=== PATIENT | male | born 1975 | race Caucasian/White ===

== ENCOUNTER 2023-05-28 16:14 | Emergency (ER) | payer OTHER, BC, SELFPAY ==
[2023-05-28 16:20] VITALS: BP 251/138; PULSE 109; RESP 20; TEMP 37.1; O2SAT 99
--- NOTE | 2023-05-28 17:16 | PC.NURSE ---
pt leaving d/t wait time, will call provider in AM.
== END 2023-05-28 17:16 | disposition left against medical advice (07) ==
LOC: ANHED 17:19
DX: R05.9 Cough, unspecified (principal)
CPT/HCPCS: 99199

== ENCOUNTER 2023-08-28 17:34 | Emergency (ER) | payer BC, SELFPAY ==
--- NOTE | ~2023-08-28 | XR_ITS ---
EXAMINATION: XR chest 2V Exam Date/Time: 08/28/2023 18:15 CDT HISTORY: Cough Comparison: None. RESULT: Lines, tubes, and devices: None. Lungs and pleura: Mild scattered reticulonodular opacities and cuffing. Cardiomediastinal silhouette: Stable. Other: No acute osseous or upper abdominal finding. IMPRESSION: Pulmonary opacities may represent bronchiolitis, as can be seen with atypical infection, asthma, aspi ration, and small airways disease. Reviewed, dictated and finalized at location K. IMPRESSION: Pulmonary opacities may represent bronchiolitis, as can be seen with atypical i nfection, asthma, aspiration, and small airways disease.
[2023-08-28 17:52] VITALS: BP 230/139; PULSE 96; RESP 16; TEMP 37.5; O2SAT 96
--- NOTE | 2023-08-28 18:02 | ED.URI ---
HPI - URI/Sore Throat General Chief Complaint: Upper Respiratory Infection Stated Complaint: Congestion Time Seen by Provider: 08/28/23 18:06 Source: patient and RN notes reviewed Mode of arrival: ambulatory Limitations: no limitations History of Present Illness HPI Narrative: 48-year-old male presents with concern for history of 2 weeks of cough, chest congestion. Reports productive cough. Denies fever, body aches, chills, sweats. Reports his primary care provider recommended he get a chest x-ray. Reports he has been taking Mucinex and antihistamines MD elicited complaint: cough Related Data Home Medications Medication Instructions Recorded Confirmed clonidine HCl 0.1 mg tablet 0.1 mg PO BID 08/28/23 08/28/23 lisinopril 20 2 tablet PO DAILY 08/28/23 08/28/23 mg-hydrochlorothiazide 25 mg tablet Allergies Allergy/AdvReac Type Severity Reaction Status Date / Time Penicillins AdvReac Mild Hives Verified 08/28/23 18:12 Review of Systems Review of Systems: CONSTITUTIONAL: Denies malaise, chills, sweats, or fever. EYES: Denies visual changes, redness, or discharge. ENT: Reports rhinorrhea, congestion. Denies sinus pain, otalgia and sore throat. CARDIOVASCULAR: Denies chest pain, palpitations, or edema. RESPIRATORY: Reports protect cough, dyspnea. GASTROINTESTINAL: Denies abdominal pain, nausea, vomiting, diarrhea SKIN: Denies rash or itching. MUSCULOSKELETAL: Denies myalgia. NEUROLOGIC: Denies headache. All systems reviewed & are unremarkable except as noted in HPI and below PMFSH Comments At time of signature, agree with nursing past medical, surgical, social and family history. There is no relevant family history pertinent to the presenting complaint Exam Narrative: GENERAL: Well-appearing, well-nourished, and in no acute distress. HEAD: Normocephalic EYES: PERRLA, conjunctivae clear ENT: Nares clear. Mucous membranes moist. TM pearly wills with dull light reflex bilaterally; no tragal tenderness. Oropharynx not erythematous without lesions. Tonsils not enlarged and without exudate, no drooling, no hoarseness, no trismus, uvula midline. NECK: Supple. No lymphadenopathy CHEST: Clear to auscultation, breath sounds equal. No wheezing, rhonchi, rales, or stridor. No respiratory distress, speaks in full sentences. HEART: Regular rate and rhythm. No murmur heard. SKIN: Warm, dry, no rash. NEURO: Alert and oriented x3. PSYCH: Normal mood and affect Course Course Emergency Course: Patient is aware of diagnosis, understands and agrees to treatment plan. Anticipatory guidance given. Patient agrees to follow-up as directed and is aware of reasons to seek care at the emergency department. Portions of this record may have been created with voice recognition software Level of Care: Express Care Visit Vital Signs Vital signs: Vital Signs Temperature 99.5 F 08/28/23 17:52 Pulse Rate 96 08/28/23 17:52 Respiratory Rate 16 08/28/23 17:52 Blood Pressure 230/139 H 08/28/23 17:52 Pulse Oximetry 96 08/28/23 17:52 Oxygen Delivery Room Air 08/28/23 17:52 Temperature 99.5 F 08/28/23 17:52 Pulse Rate 96 08/28/23 17:52 Respiratory Rate 16 08/28/23 17:52 Blood Pressure 230/139 H 08/28/23 17:52 Pulse Oximetry 96 08/28/23 17:52 Oxygen Delivery Room Air 08/28/23 17:52 Reviewed. MDM - URI/Sore Throat MDM Narrative Medical decision making narrative: Differential diagnosis considered: Flores virus, strep pharyngitis, allergic rhinitis, upper respiratory tract infection, sinusitis, rhinosinusitis, nasopharyngitis. viral pharyngitis, otitis media, otitis externa, pneumonia, bronchitis, viral cough syndrome, viral syndrome, and influenza. Exam findings show no acute concerns or changes; patient is non-toxic appearing and is in no distress. Patient is appropriate for outpatient treatment and follow-up. Lab Data Attestation: I reviewed the patient's lab results. Imaging Data My imp
[2023-08-28 18:05] VITALS: BP 204/113
== END 2023-08-28 18:49 | disposition home or self-care (01) ==
PROVIDERS: Emergency Provider Nurse Practitioner; PCP Internal Medicine
DX: J22 Unspecified acute lower respiratory infection (principal); I10 Essential (primary) hypertension
CPT/HCPCS: 71046; 99213; G0463

== ENCOUNTER 2025-02-25 15:48 | Emergency (ER) | payer OTHER, SELFPAY ==
--- OUTSIDE RECORDS SUMMARY | 2008-04-30 04:15 | XMS_ITS | Continuity of Care Document ---
Author Organization [facility] Address [address] [place] [address] [address] [place] [address] Phone Care Team Providers Care Household Appliance Mechanic Name Role Phone Mann OD, Mart Unavailable Unavailable Procedures Procedure Date Office/outpatient Visit, Est Advance Directives Directive Yes / No Effective Date File Name No Information Encounters Encounter Description Practice Location Reason(s) For Visit Diagnoses Date Provider Providers Copied on Encounter Office/outpat ient Visit, Est [facility], [address] [place] [address] [address], [place], [place], [id number], [place] tel:[phone] [facility] [place] No Information 1-[address] Mann OD Mart. [address] , [address], [place], [address], [place]. tel:[phone] Family History Family Member Type Diagnosis Age At Onset No Information Payers Payer name Insurance type Covered constitution party ID Authoriza tion(s) No Information Social History Type Description Quantity Date Captured Comments Sex Male Smoking Status No Information Chief Complaint And Reason For Visit No Information Reason For Referral Reason For Referral No Information History Of Present Illness Encounter Date Complaint History Of Prese nt Illness No Information Functional Status Date Functional Assessmen t No Information Instructions Date Instruction Additional Infor mation No Information Assessments Type Assessment Date No Information Patient Care Teams Name Effective Dates (start - stop) Status Members No Information
--- OUTSIDE RECORDS SUMMARY | 2008-04-30 04:15 | XMS_ITS | Continuity of Care Document ---
Author Organization [facility] Address [address] [place] [address] [address] [place] [address] Phone Care Team Providers Care Business Transformation Manager Name Role Phone Mann OD, Mart Unavailable Unavailable Procedures Procedure Date Office/outpatient Visit, Est Advance Directives Directive Yes / No Effective Date File Name No Information Encounters Encounter Description Practice Location Reason(s) For Visit Diagnoses Date Provider Providers Copied on Encounter Office/outpat ient Visit, Est [facility], [address] [place] [address] [address], [place], [place], [id number], [place] tel:[phone] [facility] [place] No Information 1-[address] Mann OD Mart. [address] , [address], [place], [address], [place]. tel:[phone] Family History Family Member Type Diagnosis Age At Onset No Information Payers Payer name Insurance type Covered libertarian ID Authoriza tion(s) No Information Social History [...]
--- OUTSIDE RECORDS SUMMARY | 2021-05-26 09:24 | XMS_ITS | Continuity of Care Document ---
Author Organization [facility] Address [address] [place] [address] Phone Care Team Providers Care Section Chief Name Role Phone Candy Virgen OT Unavailable Unavailable Advance Directives Directive Yes / No Effective Date File Name No Information Encounters Encounter Description Practice Location Reason(s) For Visit Diagnoses Date Provider Providers Copied on Encounter [facility], [address], [place], [place], [id number], tel:[phone] [place] No Information 2 Promise Gupta. . Family History Family Member Type Diagnosis Age At Onset No Information Payers Payer name Insurance type Covered alliance party ID Authorjuanaa issac(s) Galindo [id number] Social History Type Description Quantity Date Captured [...]
--- OUTSIDE RECORDS SUMMARY | 2021-05-26 09:24 | XMS_ITS | Continuity of Care Document ---
Author Organization [facility] Address [address] [place] [address] Phone Care Team Providers Care Underground Distribution Engineer Name Role Phone Candy Virgen OT Unavailable Unavailable Advance Directives Directive Yes / No Effective Date File Name No Information Encounters Encounter Description Practice Location Reason(s) For Visit Diagnoses Date Provider Providers Copied on Encounter [facility], [address], [place], [place], [id number], tel:[phone] [place] No Information 2 Promise Gupta. . Family History Family Member Type Diagnosis Age At Onset No Information Payers Payer name Insurance type Covered democrat ID Authorjuanaa issac(s) Galindo [id number] Social History Type Description Quantity Date Captured [...]
--- NOTE | ~2025-02-25 | XR_ITS ---
Clinical history:Cough. Shortness of breath. EXAM:X-ray chest 2 views TECHNIQUE:Frontal and lateral images of the chest were obtained. Comparisons:08/28/2023 FINDINGS: Cardiomediastinal silhouette is enlarged, unchanged. No pneumothorax. No pleural effusion. No free air under the diaphragm. Moderate to large patchy opacities scattered throughout the both lungs, greater on the right. IMPRESSION: 1.Moderate to large patchy opacities scattered throughout the both lungs, greater on the right. Differential includes but is not limited to edema or pneumonia. Recommend follow-up to resolution is an underlying pulmonary nodule or mass. Consider a chest CT for further assessment. Reviewed, dictated and finalized at location Q. IMPRESSION: 1.Moderate to large patchy opacities scattered throughout the both lungs, great er on the right. Differential includes but is not limited to edema or pneumonia . Recommend follow-up to resolution is an underlying pulmonary nodule or mass. Consider a chest CT for further assessment.
[2025-02-25 16:00] VITALS: BP 165/118; PULSE 124; RESP 22; TEMP 37.4; O2SAT 93
--- NOTE | 2025-02-25 16:07 | ED_ITS ---
HPI - URI/Sore Throat General Chief Complaint: Upper Respiratory Infection Stated Complaint: Congestion Time Seen by Provider: 02/25/25 15:50 Source: patient Mode of arrival: ambulatory Limitations: no limitations History of Present Illness HPI Narrative: Patient is a 50-year-old male who presents with fever and chills for 3 days along with persistent, productive cough, congestion and body aches that started yesterday. Patient states he has been in bed most of the day today. Has not taken his temperature but has taken NyQuil, Zicam nasal spray and on allergy medicine. Patient has not taken any Tylenol or ibuprofen. States he has shortness of breath with exertion and even walking short distances. Patient does report he has high blood pressure and is on medication. Denies any chest pain, nausea, vomiting, diarrhea. Related Data Home Medications ?Medication ?Instructions ?Recorded ?Confirmed ?Last Taken ?Type clonidine HCl 0.1 mg tablet 0.1 mg PO BID 08/28/23 Unknown History lisinopril 20 2 tablet PO DAILY 08/28/23 1 Unknown History mg-hydrochlorothiazide 25 mg tablet Allergies Allergy/AdvReac Type Severity Reaction Status Date / Time Penicillins Allergy Mild Hives Verified 02/25/25 15:51 Review of Systems Review of Systems: All systems reviewed & are unremarkable except as noted in HPI and below Constitutional: Constitutional: Reports chills, Reports fatigue, Reports fever(s), Denies headache(s), Denies malaise and Denies weakness Eyes: Eyes: Denies blurry vision, Denies itchy eyes and Denies loss of vision ENT: Denies otalgia, Denies headache(s), Reports nasal congestion, Denies sinus pain and Denies sore throat Cardiovascular: Cardiovascular: Denies chest pain, Denies irregular heart rhythm and Denies dyspnea Respiratory: Respiratory: Reports cough and Reports dyspnea on exertion Gastrointestinal: Gastrointestinal: Denies abdominal pain, Denies diarrhea, Denies nausea and Denies vomiting Musculoskeletal: Musculoskeletal: Denies back pain, Denies myalgias and Denies arthralgias Integumentary/Breasts: Skin/Breast: Denies pruritus and Denies rash Neurologic: Denies headache(s), Denies loss of vision and Denies weakness Psychiatric: Psychiatric: Reports no additional psychiatric complaints Endocrine: Endocrine: Denies fatigue Allergic/Immunologic: Allergic/Immunologic: Denies itchy eyes PMFSH Comments At time of signature, agree with nursing past medical, surgical, social and family history. There is no relevant family history pertinent to the presenting complaint. Exam Const: General: cooperative, healthy appearing, comfortable, no acute distress and well nourished Nutritional Appearance: well nourished Orientation/consciousness: patient oriented x3 Limitations: no limitations HENMT: Head: normal to inspection, normocephalic and atraumatic Ears: hearing grossly normal bilaterally, external ears normal, TM's normal bilaterally, EAC's normal and no periauricular adenopathy Face/Nose/Sinus: Normal external nose present, Abnormal mucous membranes and turbinates present erythematous bilateral and diffuse, normal facial exam, sinuses nontender and face symmetric Face and sinus: normal facial exam, sinuses nontender and face symmetric Mouth: Yes Normal oral and palatal mucosa present, Yes lip normal, Yes tongue normal, Yes Normal salivary glands and ducts present, Yes oropharynx normal and Yes moist mucous membranes Teeth and gingiva: dentition normal Throat: posterior oropharynx normal, tonsils normal and uvula midline Eyes: General: appearance normal, both eyes and all related structures Alignment and Position: alignment normal and position normal Periorbital: periorbital findings normal Eyelids: eyelids normal Pupils: Equal, round and reactive pupils present Neck: Neck: normal visual inspection, full ROM, no lymphadenopathy and supple Chest: Chest palpation & inspection: normal inspection of the chest and normal palpation of entire chest wall Resp: Effort & Inspection: normal respiratory effort and able to speak in complete sentences Auscultation: clear to auscultation bilaterally, no crackles, no rales, no rhonchi and no wheezes Cardio: Rate: regular rate Rhythm: regular rhythm Heart sounds: S1 normal heart sound present and S2 normal heart sound present GI: Inspection: normal to inspection Skin: General skin exam: normal color and no rashes or lesions noted Neuro: General: patient oriented x3 and moves all extremities Cranial nerves: Yes Equal, round and reactive pupils present Speech: normal speech Gait exam (Neuro): Normal gait present Extrem: General: normal to inspection, full ROM and no edema Psych: Appearance: grossly normal and well kempt Mental Status: mental status grossly normal Speech and movement: Normal speech and movement present Affect: normal affect Attitude: cooperative Thought process: Normal t hought process present Course Course Emergency Course: Discharge instructions reviewed with patient, as well as provided in writing per nursing staff. The instructions also include specific and strict return/GO TO THE ER as well as f/u information. All questions have been answered, and the patient deny any further questions with discharge and discharge plan. Portions of this record may have been created with voice recognition software Level of Care: Express Care Visit Vital Signs Vital signs: Vital Signs Temperature 37.4 C 02/25/25 16:00 Pulse Rate 124 H 02/25/25 16:00 Respiratory Rate 22 H 02/25/25 16:00 Blood Pressure 165/118 H 02/25/25 16:00 Pulse Oximetry 93 02/25/25 16:00 Oxygen Delivery Room Air 02/25/25 16:00 Temperature 37.4 C 02/25/25 16:00 Pulse Rate 122 H 02/25/25 16:34 Respiratory Rate 22 H 02/25/25 16:34 Blood Pressure 165/118 H 02/25/25 16:00 Pulse Oximetry 94 02/25/25 16:34 Oxygen Delivery Room Air 02/25/25 16:00 Reviewed MDM - URI/Sore Throat MDM Narrative Medical decision making narrative: Patient reports being seen for this last year and was told to go to the ER. Patient went to the ER but did not want to wait so he was home and followed up with his PCP. Patient again declines transfer to ED for CT scan and will contact his PCP for outpatient imaging. Will start patient on steroids, antibiotics, Tessalon Perles to use sparingly at night and albuterol inhaler. Patient received breathing treatment does report significant relief of symptoms. Scattered coarse crackles still present and lower lobes primarily in right. Pt well hydrated appearing, in no respiratory distress, hemodynamically stable. Recommend supportive care. The patient is stable at time of discharge the clinical impression was discussed and the patient was given the opportunity to ask questions, which were addressed as completely as possible given the information available at present. Anticipatory guidance and return to care precautions were discussed and the importance of primary care follow-up was stressed and encouraged. The patient voiced understanding of the plan, indications to return, and the need for follow-up. Exam findings show no acute concerns or changes Patient is appropriate for outpatient treatment and follow-up. Differential diagnosis considered: Pneumonia, Flores virus, strep pharyngitis, allergic rhinitis, upper respiratory tract infection, sinusitis, rhinosinusitis, nasopharyngitis. viral pharyngitis, otitis media, otitis externa, otitis effusion, foreign body, cerumen impaction, viral syndrome, and influenza.? Medical Records Attestation: I reviewed the patient's medical records. Lab Data Attestation: I reviewed the patient's lab results. Labs: Lab Results 02/25/25 02/25/25 Range/Units 16:15 16:16 POC Influenza A Ag Negative (Negative) POC Influenza B Ag Negative (Negative) POC SARS CoV-2 Ag Negative (Negative) Imaging Data Radiologist's impression: Clinical history:Cough. Shortness of breath. EXAM:X-ray chest 2 views TECHNIQUE:Frontal and lateral images of the chest were obtained. Comparisons:08/28/2023 FINDINGS: Cardiomediastinal silhouette is enlarged, unchanged. No pneumothorax. No pleural effusion. No free air under the diaphragm. Moderate to large patchy opacities scattered throughout the both lungs, greater on the right. IMPRESSION: 1.Moderate to large patchy opacities scattered throughout the both lungs, greater on the right. Differential includes but is not limited to edema or pneumonia. Recommend follow-up to resolution is an underlying pulmonary nodule or mass. Consider a chest CT for further assessment. Reviewed, dictated and finalized at location Q. Discharge Plan Discharge Clinical Impression: Pneumonia Patient Disposition: Home Condition: Stable Instructions: Pneumonia (ED) Additional Instructions: Pneumonia is a lung infection that can cause a fever, cough, and trouble b reathing. Please continue all antibiotics as directed until complete. Nutrition is important - eat small frequent meals. Get lots of rest and drink fluids. Take antibiotic as prescribed. Take steroids in the morning with food. Use Tessalon Perles as needed for cough. Use inhaler with spacer as needed. Other symptomatic treatments include: -Alternate Tylenol and Motrin per package directions for fever or pain: Tylenol 650-1000mg by mouth every 4-6 hours. Do not exceed 4000mg in 24 hours. Advil (Ibuprofen) 600 mg by mouth every 6 hours. Do not exceed 2400mg in 24 hours. 8 AM: Tylenol 11 AM: Ibuprofen 2 PM: Tylenol 5 PM: Ibuprofen 8 PM: Tylenol 11 PM: Ibuprofen 2 AM: Tylenol 5 AM: Ibuprofen -Antihistamine medication such as Benadryl at night and Zyrtec/Claritin/Nidhi during the day can help improve symptoms. -Use Flonase twice a day for 5 days then daily to help reduce the inflammation and dry up your sinuses. -Eat and drink things that are easy to swallow, like tea or soup, or popsicles. -Oral rinses such as: Salt water gargles and/or may use topical anesthetic (eg. Chloraseptic spray) or lozenges to relieve dryness or throat pain). -Frequent hand washing or hand fishing line winding machine operator is one of the best ways to prevent spread of infection. -Using a vaporizer or humidifier at night will also help thin secretions and help with coughing up phlegm. Call your Primary Care Doctor and make a follow-up appointment in 3 days. If your cough worsens, you develop a fever greater than 103, you develop shaking chills, a fast heartbeat, trouble breathing and/or feel you are are breathing much faster than usual, call your Primary Care Doctor or go to the ER. Make sure you wash your hands frequently. Patient Language: Greenlandic Prescriptions: New prednisone 20 mg tablet 40 mg PO DAILY 5 Days Qty: 10 0RF doxycycline monohydrate 100 mg tablet 100 mg PO BID 7 Days Qty: 14 0RF benzonatate 100 mg capsule 100 mg PO BID PRN (Reason: cough) Qty: 14 0RF albuterol sulfate 90 mcg/actuation HFA aerosol inhaler 2 puff inhalation QID PRN (Reason: shortness of breath or wheezing) Qty: 6.7 0RF (DME) Aerochamber MV Spacer See Rx Instructions .Route Qty: 1 0RF Rx Instructions: As directed No Action clonidine HCl 0.1 mg tablet 0.1 mg PO BID lisinopril-hydrochlorothiazide 20-25 mg tablet 2 tablet PO DAILY Follow-up/Referrals: Neto,MD Devyn [Primary Care Provider] - 3 Days Stand Alone Forms: Work/School Release IP Time of Disposition: 16:40
[2025-02-25] MEDS: IPRATROPIUM 0.5 MG/ALBUTEROL SULFATE 2.5 MG (BASE) AMPUL.NEB 3 ML INHALATION (16:16)
[2025-02-25 16:17] LABS: EDINFLUASCREEN Negative (Negative); EDINFLUBSCREEN Negative (Negative)
[2025-02-25 16:17] LABS: EDCOVIDSCREEN Negative (Negative)
[2025-02-25 16:19] VITALS: PULSE 124; RESP 24; O2SAT 93
[2025-02-25 16:34] VITALS: PULSE 122; RESP 22; O2SAT 94
--- OUTSIDE RECORDS SUMMARY | 2025-02-25 17:45 | XMS_ITS | Data Portability ---
Author Organization [place] - [facility], Main Office Address [address] [place] [address] Assessment Encounter Date Assessment Date Assessment LastModified by Organization Details LastModified Time 12/16/2022 12/16/2022 Refill medications advised ER refused see me back when he gets back in town I have recommended he see a supplier engineer in [place] and he says he will find 1 [email or web address] Not available 12/16/2022 14:59:31 05/09/2023 05/09/2023 Blood pressure check 2 weeks Needs a sleep study Blood work With see if we can get AG LP 1 agent to help with weight [email or web address] Not available 05/09/2023 22:02:24 Plan of Treatment Reminders Order Date Submit Date Provider Last Modified By Organization Details Last Modified Time Details Appointments None recorded. Lab PSA, serum or plasma 2023 024 [email or web address] Not available 4 09:02:38 CMP, serum or plasma 2023 024 [email or web address] Not available 4 11:16:55 CBC w/ auto diff 2023 024 [email or web address] Not available 4 11:16:55 lipid panel, serum 2023 024 [email or web address] Not available 4 11:16:56 T3, free, serum or plasma 2023 024 [email or web address] Not available 4 09:02:37 T4, free, serum 2023 024 [email or web address] Not available 4 09:02:37 TSH, serum or plasma 2023 024 [email or web address] Not available 4 09:02:37 Referral None recorded. Procedures None recorded. Surgeries None recorded. Imaging home sleep study 2023 024 [facility], [address] [place], [address], 4 09:02:43 Medication Orders tirzepatide 2.5 mg/0.5 mL subcutaneou s pen injector 2023 024 [id number], [address] [place], [place], [id number], 4 16:58:17 tirzepatide 5 mg/0.5 mL subcutaneou s pen injector 2023 024 [email or web address] [id number], [address] [place], [place], [id number], 4 16:58:17 Patient TargetsNo targets recorded. Patient InstructionsNo instructions recorded. Reason for Referral None Reported. Problems Name Problem SNOMED Code Status Onset Date Resolution Date Notes Provider Name and Address Organization Details Recorded Time Hyperchole sterolemia 70108526 Active 2019 Not Available [facility] 3 04:50:09 Hypertensi ve disorder 89417965 Active 2019 Not Available [facility] 3 04:50:10 Anxiety 77323585 Active 2019 Not Available [facility] 3 04:50:10 Kidney lesion 1091702855607 0 Active 2020 Not Available [facility] 3 04:50:10 Right lateral elbow tendinopat hy 2093272289184 07 Active 2020 Not Available [facility] 3 04:50:10 Renewal of prescripti on Active 2021 Not Available [facility] 3 04:50:09 Renal mass 699460941 Active 2021 Not Available [facility] 3 04:50:09 Essential hypertensi on 12080293 Active 2021 Not Available [facility] 3 04:50:10 Cough 14798183 Active 2022 Valerie Maria RN null, [facility] 3 12:05:44 Overweight 898798967 Active 2023 RENATO Kamara null, [facility] 4 15:46:29 Sleep disorder 33314146 Active 2023 RENATO Kamara null, [facility] 4 15:51:31 Wheezing 65472856 Active 2023 RENATO Zepeda null, [facility] 4 13:36:28 Problem Notes None recorded. Procedures Surgical History Date Name Laterality Status Provider Name and Address Organization Details Recorded Time Knee completed Not Available [facility] 05/2022 04:41:40 procedure on elbow completed Not Available [facility] 06/29/2022 04:41:40 Knee completed Not Available [facility] 05/2022 04:41:40 Imaging Results None recorded. Procedure Notes None recorded. Medical Equipment None Reported. Allergies Allergen ID Allergen Name Allergen Category Reaction Reaction Severity Criticality Documentation Date Start Date Code Code System Note Provider Name and Address Organization Details Recorded Time 8654 Product containin g penicilli n (product) medicatio n Not available Not available Not available 06/29/2022 21461 8001 SNOMED child denis aller gy Not Available [facility] 3 05:06:03 Medications Name Sig Start Date Stop Date Status Note LastModified by Organization Details LastModified Time clonidine HCl 0.1 mg tablet TAKE 1 TABLET BY MOUTH TWICE DAILY active Not Available Not Available No t Available carvedilol 6.25 mg tablet TAKE 1 TABLET BY MOUTH TWICE DAILY active Not Available Not Available No t Available prednisone 10 mg tablet TAKE 1 TAB BY MOUTH 3 TIMES A DAY X3 DAYS, 1 TAB 2 TIMES A DAY X2 DAYS, 1 TAB ONCE A DAY X1 DAY 06/14 completed Not Available Not Available Not Available doxycycline hyclate 100 mg capsule TAKE 1 CAPSULE BY MOUTH TWICE DAILY FOR 7 DAYS 11/23 completed Not Available Not Available Not Available carvedilol 12.5 mg tablet TAKE 1 TABLET BY MOUTH TWICE DAILY active Not Available Not Available No t Available azithromyci n 250 mg tablet TAKE 2 TABLETS BY MOUTH FOR 1 DAY THEN TAKE 1 TABLET BY MOUTH DAILY FOR 4 DAYS active Not Available Not Available No t Available ibuprofen 800 mg tablet TAKE 1 TABLET BY MOUTH THREE TIMES A DAY FOR 10 DAYS NEEDED FOR PAIN. TAKE WITH FOOD 05/09 completed Not Available Not Available Not Available nifedipine ER 90 mg tablet,exte nded release TAKE 1 TABLET BY MOUTH EVERY DAY active Not Available Not Available No t Available hydrocodone 5 mg-acetamin ophen 325 mg tablet TAKE 1 TABLET BY MOUTH EVERY 6 HOURS NEEDED 06/14 completed Not Available Not Available Not Available prednisone 20 mg tablet TAKE 2 TABLETS BY MOUTH EVERY DAY FOR 5 DAYS active Not Available Not Available No t Available sertraline 100 mg tablet TAKE 1 TABLET BY MOUTH EVERY DAY 05/09 completed Not Available Not Available Not Available permethrin 5 % topical cream APPLY (THOROUGH LY MASSAGE INTO SKIN FROM HEAD TO SOLES OF FEET) BY TOPICAL ROUTE ONCE LEAVE ON FOR 8-14 HR, THEN REMOVE BY THOROUGH WASHING 06/14 completed Not Available Not Available Not Available nifedipine ER 30 mg tablet,exte nded release Take 1 tablet by mouth once daily pt needs appt active Not Available Not Available No t Available prednisone 10 mg tablets in a dose pack Take 1 tab by mouth, 3 times a day for 3 daysTake 1 tab by mouth 2 times a day for 2 daysTake 1 tab by mouth once a day for 1 day 06/14 completed Not Available Not Available Not Available meloxicam 7.5 mg tablet 12/15 completed Not Available Not Available Not Available oxycodone-a cetaminophe n 5 mg-325 mg tablet PLEASE SEE ATTACHED FOR DETAILED DIRECTION S 05/09 completed Not Available Not Available Not Available nifedipine ER 60 mg tablet,exte nded release 24 hr TAKE 1 TABLET BY MOUTH EVERY DAY active Not Available Not Available No t Available pantoprazol e 40 mg tablet,sidra yed release Take 1 tablet every day by oral route. 12/16 completed Not Available Not Available Not Available erythromyci n 5 mg/gram (0.5 %) eye ointment PLEASE SEE ATTACHED FOR DETAILED DIRECTION S 06/14 completed Not Available Not Available Not Available lisinopril 20 mg-hydrochl orothiazide 25 mg tablet TAKE 1 TABLET BY MOUTH EVERY DAY active Not Available Not Available No t Available methylpredn isolone 4 mg tablets in a dose pack 05/09 completed Not Available Not Available Not Available albuterol sulfate HFA 90 mcg/actuati on aerosol inhaler INHALE 2 PUFFS BY MOUTH EVERY 4 HOURS active Not Available Not Available No t Available nifedipine ER 60 mg tablet,exte nded release TAKE 1 TABLET BY MOUTH EVERY DAY active Not Available Not Available No t Available cefdinir 300 mg capsule Take 1 capsule twice a day by oral route for 7 days. active Not Available Not Available No t Available sertraline 50 mg tablet TAKE 1 TABLET BY MOUTH ONCE DAILY FOR TWO WEEKS THEN INCREASE TO 2 TABLETS DAILY active Not Available Not Available No t Available escitalopra m 10 mg tablet TAKE 1 TABLET BY MOUTH EVERY DAY active Not Available Not Available No t Available omeprazole OTC qd 03/20 completed Not Available Not Available Not Available Sinus and Allergy PE 2019 active Not Available Not Available Not Avai lable Mounjaro 5 mg/0.5 mL subcutaneou s pen injector Inject by subcutane ous route for 28 days. active Not Available Not Available No t Available Mounjaro 2.5 mg/0.5 mL subcutaneou s pen injector Inject by subcutane ous route for 28 days. active Not Available Not Available No t Available Vitals Date Recorded Body height Body mass index (BMI) Body weight Body temperature Heart rate Systolic And Diastolic Provider Name and Address Organization Details Last Updated DateTime 4 180.34 cm 48.8 kg/m2 983318. 33 g 97.9 [degF] 92 /min 152/104 mm[Hg] RENATO Zepeda [place] [facility] 4 15:11:51 Date Recorded Body height Provider Name an d Address Organization Details Last Updated DateTime 06/14/2021 180.34 cm Not Available [facility] 3 04:42:06 Date Recorded Body mass index (BMI) Body height Heart rate Body temperature Body weight Systolic And Diastolic Provider Name and Address Organization Details Last Updated DateTime 2 45.9 kg/m2 180.34 cm 87 /min 97.8 [degF] 967889. 89 g 160/100 mm[Hg] Not Available [facility] 3 04:42:06 Date Recorded Body height Body mass index (BMI) Body weight Body temperature Heart rate Systolic And Diastolic Provider Name and Address Organization Details Last Updated DateTime 3 180.34 cm 47 kg/m2 191267. 63 g 97.8 [degF] 99 /min 200/142 mm[Hg] RENATO Zepeda [place] [facility] 3 13:14:46 Date Recorded Body mass index (BMI) Body height Heart rate Body temperature Body weight Systolic And Diastolic Provider Name and Address Organization Details Last Updated DateTime 2 45.3 kg/m2 180.34 cm 85 /min 97.7 [degF] 672383. 52 g 140/90 mm[Hg] Not Available [facility] 3 04:42:06 Social History Question Answer Notes LastModified by Organization Details LastModified Time Tobacco Smoking Status Current Some Day Smoker not every day and one or two at most Not Available [facility] 06/29/2022 04:05:53 Do You Have An Advance Directive? No MIGRATION.030 [id number] Information not available 06/29/2022 Do You Wear A Helmet When Biking? No Does Not Bike MIGRATION.030 [id number] Information not available 06/29/2022 What Is Your Level Of Caffeine Consumption? Occasional MIGRATION.030 [id number] Information not available 06/29/2022 How Much Tobacco Do You Chew? None MIGRATION.030 [id number] Information not available 06/29/2022 In The 14 Days Before Symptom Onset, Have You Had Close Contact With A Laboratory-confi rmed COVID-19 While That Case Was Ill? No MIGRATION.030 [id number] Information not available 06/29/2022 In The 14 Days Before Symptom Onset, Have You Had Close Contact With A Person Who Is Under Investigation For COVID-19 While That Person Was Ill? No MIGRATION.0301 [id number] Information not available 06/29/2022 What Type Of Diet Are You Following? REGULAR MIGRATION.0301 [id number] Information not available 06/29/2022 Which Illicit Or Recreational Drugs Have You Used? None MIGRATION.0301 837083 Information not available 06/29/2022 What Is The Highest Grade Or Level Of School You Have Completed Or The Highest Degree You Have Received? [id number] MIGRATION.0301 [id number] Information not available 06/29/2022 Have There Been Any Changes To Your Family Or Social Situation? No MIGRATION.0301 [id number] Information not available 06/29/2022 What Is The Fluoride Status Of Your Home? Unknown MIGRATION.0301 557385 Information not available 06/29/2022 Are There Any Guns Present In Your Home? Yes MIGRATION.0301 488720 Information not available 06/29/2022 Do You Use Insect Repellent Routinely? No MIGRATION.0301 [id number] Information not available 06/29/2022 Where Do You Live? [place]LevelHouse MIGRATION.0301 255525 Information not available 06/29/2022 Do You Have A Medical Power Of Agricultural Produce Packer? No MIGRATION.0301 468237 Information not available 06/29/2022 What Was The Date Of Your Most Recent Tobacco Screening? 05/09/2023 [email or web address] Information not available 05/09/2023 Do You Have Any Pets? Yes MIGRATION.0301 [id number] Information not available 06/29/2022 What Is Your Relationship Status? MIGRATION.0301 [id number] Information not available 06/29/2022 Do You Use Your Seat Belt Or Car Seat Routinely? Yes MIGRATION.0301 638700 Information not available 06/29/2022 Do You Have Smoke And Carbon Monoxide Detectors In Your Home? Yes MIGRATION.0301 [id number] Information not available 06/29/2022 At What Age Did You Start Smoking Tobacco? 20 MIGRATION.0301 [id number] Information not available 06/29/2022 Are You Passively Exposed To Smoke? Yes MIGRATION.0301 365022 Information not available 06/29/2022 Are There Any Smokers In Your House? Yes MIGRATION.0301 155368 Information not available 06/29/2022 What Types Of Sporting Activities Do You Participate In? None MIGRATION.0301 265620 Information not available 06/29/2022 Do You Use Sunscreen Routinely? Yes MIGRATION.0301 423931 Information not available 06/29/2022 Has Tobacco Cessation Counseling Been Provided? No MIGRATION.0301 386096 Information not available 06/29/2022 Have You Recently Traveled Abroad? No MIGRATION.0301 359244 Information not available 06/29/2022 Do You Have Any Dietary Restrictions? No MIGRATION.0301 874666 Information not available 06/29/2022 Sex: Male Functional Status Question Answer Note LastModified by Organizat ReplySend Details LastModified Time Do you use any illicit or recreational drugs? No MIGRATION.149899 2953 Information not available 06/29/2022 Do you or have you ever used any other forms of tobacco or nicotine? No MIGRATION.716527 8900 Information not available 06/29/2022 What is your level of alcohol consumption? None quit MIGRATION.099630 9452 Information not available 06/29/2022 Do you or have you ever used smokeless tobacco? 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 Never used electronic cigarettes MIGRATION.483563 8144 Information not available 06/29/2022 What is your exercise level? None MIGRATION.092474 2971 Information not available 06/29/2022 Mental Status Question Answer Note LastModified by Organizat ion Details LastModified Time Do you feel stressed (tense, restless, nervous, or anxious, or unable to sleep at night)? [id number] MIGRATION.[id number] Information not available 06/29/2022 Family History Relationship Description Onset Age of this Age Resolved Age Notes LastModified by Organization Details LastModified Time Mother Parkinson's disease MIGRATION.092 [id number] Not available 06/29/2022 04:41:42 Mother Mixed anxiety and depressive disorder MIGRATION.055 [id number] Not available 06/29/2022 04:41:42 Father Hypertensive disorder MIGRATION.839 [id number] Not available 06/29/2022 04:41:43 Father Atrial fibrillation MIGRATION.598 [id number] Not available 06/29/2022 04:41:43 Medical History Condition Response NERVE DISEASE N BLINDNESS N RHEUMATIC FEVER N KIDNEY STONES N BLADDER PROBLEMS N MRSA N OTHER # 1 N POLIO N LUNG DISEASE/DISORDER N RADIATION / CHEMOTHERAPY N COPD N Other # 2 N BLOOD DISEASES N EAR OR HEARING PROBLEMS N MUMPS N DEPRESSION (INCLUDING POST ) N BOWEL PROBLEMS N STROKE/TIA N ULCERS N BENIGN PROSTATIC HYPERPLASIA N MEASLES N MYOCARDIAL INFARCTION N OBESITY N GERD/NAUSEA Y ANEURYSM N URINARY/BLADDER/KIDNEY PROBLEMS Y CORONARY ARTERY DISEASE (CAD) N ADDICTION CONCERNS N Impotence N ENDOMETRIOSIS N USE OF BLOOD THINNERS N SKIN PROBLEMS N GASTROINTESTINAL DISORDER N PERIPHERAL VASCULAR DISEASE N MUSCLE,JOINT OR BONE PROBLEMS N GASTROINTESTINAL BLEEDING N BLOOD CLOTS N ASTHMA N CATARACTS N ERECTILE DYSFUNCTION N VARICOSITIES N GI PROBLEMS N Low Testosterone N INFERTILITY N AIDS/HIV N CHEMOTHERAPY / RADIATION N LIVER DISEASE N MALE HYPOGONADISM N HYPERTENSION Y Deficiency N TOURETTE'S N ANXIETY DISORDER Y BLOOD TRANSFUSION N ANEMIA/BLOOD DISORDER N CHRONIC EAR INFECTIONS N BRONCHITIS N TUBERCULOSIS N GLAUCOMA N FOOT PROBLEM N DIVERTICULITIS N SLEEP APNEA N CHICKENPOX N INFECTIOUS DISEASE N PROSTATE N HEART ARRHYTHMIA N INSOMNIA N HIGH CHOLESTEROL / HYPERLIPIDEMIA Y EYE PROBLEMS N HYPERTHYROIDISM N EDEMA N CHRONIC PAIN SYNDROME N HYPOTHYROIDISM N CAROTID BLOCKAGE N CONSTIPATION N BACK / NECK PROBLEMS N ATHEROSCLEROSIS N BREAST PROBLEMS N DIALYSIS N ECZEMA N OSTEOPOROSIS N ARTHRITIS N APPENDICITIS N DIABETES, TYPE N BAD TEETH N ENT N HEARTBURN / REFLUX N AUTISM SPECTRUM DISORDER (ASD) N HEPATITIS / LIVER DISEASE N GOUT N SLEEP DISORDER N ALZHEIMER'S DISEASE N Brain Problems N DEMENTIA N HERPES N SEIZURES/EPILEPSY N HEADACHES/MIGRAINES N VASCULAR DISEASE N PACEMAKER N Blood Disorder N DIZZINESS N HEART DISEASE/HEART PROBLEMS N KIDNEY DISEASE N MULTIPLE SCLEROSIS N CANCER: SPECIFY N CARDIAC ARRHYTHMIA N ATRIAL FIBRILLATION N Gall Stones N PULMONARY EMBOLISM N AUTOIMMUNE DISEASE N Past Encounters Encounter ID Performer Location Encounter Start Date Encounter Closed Date Diagnosis/Indication Diagnosis SNOMED-CT Code Diagnosis ICD10 Code Diagnosis IMO Codes Diagnosis Note [id number] Misbah Galarza MD S_[address] [place] [address] 07/09/2020 00:00:00 07/09/2020 11:36:08 [id number] Devyn uDque MD S[facility] Internal Med [facility] [address] [facility] [address] [place] [address] 09/02/2020 00:00:00 09/02/2020 22:38:13 [id number] Devyn Duque MD [facility] Internal Med [address] , [place] [address] 10/20/2020 00:00:00 10/27/2020 22:42:25 [id number] [facility] [place] [address] [place] [address] 10/21/2020 00:00:00 10/21/2020 10:51:23 [id number] Misbah Galarza MD [facility] [place] [address] [place] [address] 04/29/2021 00:00:00 04/29/2021 10:14:34 [id number] Devyn Duque MD [facility] [address] [address] 06/14/2021 00:00:00 06/27/2021 11:30:37 [id number] Devyn Duque MD [facility] [address] [address] 12/15/2021 00:00:00 12/18/2021 22:45:09 [id number] Devyn Duque MD [facility] Internal Med [facility] [address] [address] 02/11/2022 00:00:00 02/11/2022 23:45:17 [id number] Devyn Duque MD [facility] [address] [address] 12/16/2022 12:51:11 12/16/2022 14:07:15 Hypertensive disorder 35035133 I10 Hypercholesterolemia 136 47424 E78.00 Anxiety 66287945 F41.9 [id number] Devyn Duque MD [facility] [address] [facility] , [place] [address] 05/09/2023 14:54:40 05/09/2023 15:40:26 Essential hypertension 18941800 I10 Screening for malignant neoplasm of prostate 252445748 Z12.5 Overweight 467232180 E66 .3 Sleep disorder 26251792 G47.9 Health Concerns Section Related Observation LastModified by Organization Detai ls LastModified Time None Recorded Concern Status LastModified by Organization Details LastModified Time None Recorded Advance Directives Directive N: Payers Insurance Date Sequence Insurance Name Policy Number Policy Pleitez Covered Member ID Pleitez Member ID Guarantor Name 11/21/2024 [facility] Luis Alfredo R Amanda SELF SELF Luis Alfredo Beckwith Amanda 11/21/2024 1 [place] [id number] Luis Alfredo Beckwith Amanda [id number] Luis Alfredo Patel 11/21/2024 1 [place] [facility] Luis Alfredo Beckwith Amanda [id number] Luis Alfredo Beckwith Amanda 11/21/2024 1 [place] [id number] Luis Alfredo Beckwith Amanda [id number] Luis Alfredo R Amanda Notes Date Note Type Note Provider Name and Address Organization Details Recorded Time 12/16/2022 text/html Hypertension blood pressures eyes been out of meds but he has had no stroke or cardiac some Devyn Duque MD [address], [place], [address], [facility] 12/16/2022 15:00:03 05/09/2023 text/html This job is brought in back to this area he has been out of his blood pressure medicine for about 2 or 3 months. That all because a game some erectile dysfunction. Sleeping snoring worse with drinking dyslipidemia needs blood work obesity needs help Devyn Duque MD [address], [place], [address], [facility] 05/09/2023 22:02:57
--- OUTSIDE RECORDS SUMMARY | 2025-02-25 17:45 | XMS_ITS | Data Portability ---
Author Organization [facility] Aman Quintanilla Address [address] [place] [address] Care Team Providers Care Physician Assistant Name Role Phone DEANDRA DUQUE Primary Care Provider Assessment Encounter Date Assessment Date Assessment LastModified by Organization Details LastModified Time 02/01/2024 02/01/2024 EKG shows a norm al sinus rhythm with no acute changesc. We will add Coreg 12.5 b.i.d.. Blood pressure check in 48-72 hours. Any chest pain shortness of breath headache dizziness chest pain go to ER. He refuses to go to ER today. Blood work will be ascertained as well as urinalysis old records. He will need a sleep study. He needs colon cancer screening. We need old records. Healthy life style care instructions discussed. [email or web address] Not available 02/01/2024 22:25:02 03/11/2024 03/11/2024 caloric restriction. Sleep study. Colonoscopy. Surgical referral for his right inguinal hernia. follow up in 3 months [email or web address] Not available 03/16/2024 14:30:14 07/25/2024 07/25/2024 generic Lexapro 10 mg daily increase Coreg to 12.5 b.i.d. follow up in 1 month no contraindications to GLP 1 but his insurance company will not pay for it he thinks he is going to go and possibly do it through private clinic. He needs to go get his blood work done as well [email or web address] Not available 07/27/2024 21:08:21 08/22/2024 08/22/2024 His blood pressu re is not controlled add clonidine 0.2 mg p.o. b.i.d. increase Coreg to 25 b.i.d. get a sleep study blood pressure check in 1 week start semaglutide from clinic if he can afford it regular visit 1 month [email or web address] Not available 09/01/2024 23:29:52 Plan of Treatment Reminders Order Date Submit Date Provider Last Modified By Organization Details Last Modified Time Details Appointments None recorded. Lab HbA1c (hemoglobi n A1c), blood 2024 025 [email or web address] In-Office Order, Internal Use Only DO Not Attach Compendium DO Not Attach Compendium, Do Not Delete/merge, [id number] 21:34:17 T3, free, serum or plasma 2023 024 [email or web address] [facility], [address], [address], [place], [address], 11:34:45 TSH, ultra-sens itive, serum 2023 024 [email or web address] [facility], [address], [address], [place], [address], 11:34:45 unlisted lab - T4, free 2023 024 cyahlma [facility], [address], [address], [place], [address], 11:34:33 lipid panel, serum 2023 024 [email or web address] [facility], [address], [address], [place], [address], 11:34:45 CMP, serum or plasma 2023 024 cyahlma [facility], [address], [address], [place], [address], 4 11:34:25 CBC w/ auto diff 2023 024 [email or web address], [address], [address], [place], [address], 4 11:34:16 urinalysis , complete 2023 024 [email or web address] [facility], [address], [address], [place], [address], 4 11:34:03 Referral general surgeon referral 2023 024 [email or web address] Tenorio MD, [address], [address], [place], [address], 5 09:43:46 Procedures colonoscop y screening (PROC) 2023 024 [facility], [address], [address], [place], [address], 5 10:50:00 Surgeries None recorded. Imaging home sleep study 2023 024 [facility]), [address], [place], [address], 5 09:17:22 electrocar diogram 2023 024 [email or web address] In-Office Order, Internal Use Only DO Not Attach Compendium DO Not Attach Compendium, Do Not Delete/merge, [id number] 4 17:37:28 Medication Orders clonidine HCl 0.2 mg tablet 2024 025 [email or web address] [facility], [address], [place], [id number], 5 21:34:17 Coreg 25 mg tablet 2024 025 [email or web address] [facility]25, [address], [place], [id number], 21:34:17 semaglutid e (weight loss) 0.25 mg/0.5 mL subcutaneo us pen injector 2024 [facility]74078, [address], [place], [place], [id number], 15:07:38 escitalopr am 10 mg tablet 2024 025 [facility] #43875, [address], [place], [place], [id number], 15:07:39 Coreg 12.5 mg tablet 2024 025 [email or web address], [address] [facility], [place], [place], [phone], 12:10:27 Patient TargetsNo targets recorded. Patient Instructions Encounter Date Encounter Id Patient Instructions Last Modified By Organization Details Last Modified Time 02/01/2024 [id number] A healthy lifestyle: care instructions [email or web address] Not available 02/01/2024 17:37:28 08/22/2024 [id number] A healthy lifestyle: care instructions [email or web address] Not available 08/22/2024 21:34:17 Reason for Referral General Surgeon Referral for Right inguinal hernia Referring Physician: Deandra Duque, Internal Medicine, Encounter Date: 03/11/2024 Results Created Date Observation Date Name Description Value Unit Range Abnormal Flag Note LastModifiedBy Organization Detail LastModifiedTime 08/23/1908/22/2024 HbA1c (hemo globi n A1c), blood HbA1c 5.7 Not Available In-Office Order Internal Use Only DO Not Attach Compendium DO Not Attach Compendium, Do Not Delete/merge, [id number] 08/22/2024 14:39:34 02/01/20 raquel whelan am No observ ation record ed. SHAKA In-Office Order Internal Use Only DO Not Attach Compendium DO Not Attach Compendium, Do Not Delete/merge, [id number] 02/01/2024 15:58:34 02/26/20 25 02/25/2025 imagi ng/di agnos tic resul t No observ ation record ed. SHAKA [facility] [address], [place], [address], 02/25/2025 17:20:35 Result Notes None recorded. Problems Name Problem SNOMED Code Status Onset Date Resolution Date Notes Provider Name and Address Organization Details Recorded Time Essential hypertension 44412856 Active 2023 Titus Almaguer MA null, [place] - [facility] 4 16:00:09 Morbid obesity 386006336 Active 2023 Titus Almaguer [place] null, [place] [facility] 4 16:00:10 Anxiety 26233231 Active 2024 Deandra Duque MD Attn: Accountj[employer]iel g,[address] [facility], [place], [address], [place] - [facility] 5 23:30:07 Problem Notes None recorded. Medical Equipment None Reported. Allergies Allergen ID Allergen Name Allergen Category Reaction Reaction Severity Criticality Documentation Date Start Date Code Code System Note Provider Name and Address Organization Details Recorded Time 377504 Product containin g penicilli n (product) medicatio n Not available Not available Not available 02/01/2024 42933 8001 SNOMED Rica Fernandez MA null, [place] - [facility] 4 15:08:39 Medications Name Sig Start Date Stop Date Status Note LastModified by Organization Details LastModified Time clonidine HCl 0.1 mg tablet TAKE 1 TABLET BY MOUTH TWICE DAILY 08/28 completed Not Available Not Available Not Available carvedilo l 6.25 mg tablet TAKE 1 TABLET BY MOUTH TWICE DAILY 08/28 completed Not Available Not Available Not Available doxycycli ne hyclate 100 mg capsule Take 1 capsule twice a day by oral route for 7 days. 07/12 completed Not Available Not Available Not Available carvedilo l 12.5 mg tablet TAKE 1 TABLET BY MOUTH TWICE DAILY 08/28 completed Not Available Not Available Not Available azithromy hollis 250 mg tablet TAKE 2 TABLETS BY MOUTH FOR 1 DAY THEN TAKE 1 TABLET BY MOUTH DAILY FOR 4 DAYS 01/31 completed Not Available Not Available Not Available ibuprofen 800 mg tablet TAKE 1 TABLET BY MOUTH THREE TIMES A DAY FOR 10 DAYS NEEDED FOR PAIN. TAKE WITH FOOD 08/22 completed Not Available Not Available Not Available nifedipin e ER 90 mg tablet,ex tended release Take 1 tablet every day by oral route. 2024 active Not Available Not Available Not Avai lable prednison e 20 mg tablet TAKE 2 TABLETS BY MOUTH EVERY DAY FOR 5 DAYS 01/31 completed Not Available Not Available Not Available sertralin e 100 mg tablet TAKE 1 TABLET BY MOUTH EVERY DAY 07/25 completed Not Available Not Available Not Available doxycycli ne monohydra te 100 mg tablet TAKE 1 TABLET BY MOUTH TWICE DAILY FOR 7 DAYS 01/31 completed Not Available Not Available Not Available oxycodone -acetamin ophen 5 mg-325 mg tablet PLEASE SEE ATTACHED FOR DETAILED DIRECTIO NS 01/31 completed Not Available Not Available Not Available clonidine HCl 0.2 mg tablet Take 1 tablet twice a day by oral route. 2024 active Not Available Not Available Not Avai lable Coreg 25 mg tablet Take 1 tablet twice a day by oral route. 2024 active Not Available Not Available Not Avai lable nifedipin e ER 60 mg tablet,ex tended release 24 hr Take 1 tablet every day by oral route. 01/31 completed Not Available Not Available Not Available lisinopri l 20 mg-hydroc hlorothia zide 25 mg tablet Take 1 tablet every day by oral route. 2024 active Not Available Not Available Not Avai lable methylpre dnisolone 4 mg tablets in a dose pack FOLLOW PACKAGE DIRECTIO NS 01/31 completed Not Available Not Available Not Available albuterol sulfate HFA 90 mcg/actua tion aerosol inhaler INHALE 2 PUFFS BY MOUTH EVERY 4 HOURS active Not Available Not Available No t Available nifedipin e ER 60 mg tablet,ex tended release TAKE 1 TABLET BY MOUTH EVERY DAY 02/21 completed Changed to 90mg Not Available Not Available Not Available escitalop breanna 10 mg tablet TAKE 1 TABLET BY MOUTH EVERY DAY active Not Available Not Available No t Available semagluti de (weight loss) 0.25 mg/0.5 mL subcutane ous pen injector Inject 0.25 weekly for 4 weeks and then 0.5mg weekly for 4 weeks 2024 active Not Available Not Available Not Avai lable Vitals Date Recorded Body height Body mass index (BMI) Body weight Heart rate Oxygen saturation Oxygen saturation in Arterial blood by Pulse oximetry Systolic And Diastolic Provider Name and Address Organization Details Last Updated DateTime 5 180.34 cm 50.8 kg/m2 081234. 62 g 78 /min 98 % 98 % 180/108 mm[Hg] Titus Almaguer MA [facility] 5 14:38:55 Date Recorded Body height Body mass index (BMI) Body weight Heart rate Oxygen saturation Oxygen saturation in Arterial blood by Pulse oximetry Systolic And Diastolic Provider Name and Address Organization Details Last Updated DateTime 5 180.34 cm 50.2 kg/m2 628534. 25 g 90 /min 98 % 98 % 210/122 mm[Hg] Rica Fernandez MA [facility] 5 14:37:28 Date Recorded Heart rate Oxygen saturation Oxygen saturation in Arterial blood by Pulse oximetry Heart rate Oxygen saturation Oxygen saturation in Arterial blood by Pulse oximetry Systolic And Diastolic Systolic And Diastolic Provider Name and Address Organization Details Last Updated DateTime 4 90 /min 96 % 96 % 94 /min 96 % 96 % 210/124 mm[Hg] 210/120 mm[Hg] Johnna Alvarado MA [facility] 4 15:26:02 Date Recorded Body height Body mass index (BMI) Body weight Heart rate Oxygen saturation Oxygen saturation in Arterial blood by Pulse oximetry Systolic And Diastolic Provider Name and Address Organization Details Last Updated DateTime 4 180.34 cm 49.6 kg/m2 802199. 52 g 100 /min 97 % 97 % 230/130 mm[Hg] Rica Fernandez MA [facility] 4 15:08:11 Date Recorded Body height Heart rate Oxygen saturation Oxygen saturation in Arterial blood by Pulse oximetry Heart rate Oxygen saturation Oxygen saturation in Arterial blood by Pulse oximetry Systolic And Diastolic Systolic And Diastolic Provider Name and Address Organization Details Last Updated DateTime 4 180.34 cm 75 /min 99 % 99 % 71 /min 98 % 98 % 180/100 mm[Hg] 140/72 mm[Hg] Johnna SIDNEY Alvar[place] - [facility] 4 11:05:22 Date Recorded Body height Body mass index (BMI) Body weight Heart rate Oxygen saturation Oxygen saturation in Arterial blood by Pulse oximetry Systolic And Diastolic Provider Name and Address Organization Details Last Updated DateTime 180.34 cm 51.4 kg/m2 141981. 71 g 81 /min 96 % 96 % 138/70 mm[Hg] Johnna SIDNEY [place] - [facility] 4 16:12:25 Social History Question Answer Notes LastModified by Organizat ion Details LastModified Time Tobacco Smoking Status Current Every Day [facility] 02/01/2024 15:14:11 Do You Have An Advance Directive? No Information n ot available 02/01/2024 Are You Blind Or Do You Have Difficulty Seeing? No Information n ot available 02/01/2024 What Is Your Level Of Caffeine Consumption? Moderate Information not available 02/01/2024 In The 14 Days Before Symptom Onset, Have You Had Close Contact With A Laboratory-confirm ed COVID-19 While That Case Was Ill? No Information n ot available 02/01/2024 In The 14 Days Before Symptom Onset, Have You Had Close Contact With A Person Who Is Under Investigation For COVID-19 While That Person Was Ill? No Information not available 02/01/2024 Have You Been To An Area Known To Be High Risk For COVID-19? No Information not available 02/01/2024 Are You Deaf Or Do You Have Serious Difficulty Hearing? No Information not available 02/01/2024 What Type Of Diet Are You Following? REGULAR Information n ot available 02/01/2024 Are There Any Guns Present In Your Home? No Information not available 02/01/2024 What Was The Date Of Your Most Recent Tobacco Screening? 08/22/2024 Information not available 08/22/2024 What Is Your Relationship Status? Single Information not available 02/01/2024 Do You Use Your Seat Belt Or Car Seat Routinely? Yes Information not available 02/01/2024 Do You Have Smoke And Carbon Monoxide Detectors In Your Home? Yes Information not available 02/01/2024 At What Age Did You Start Smoking Tobacco? 33 Information not available 07/25/2024 How Much Tobacco Do You Smoke? 1 PPW Information not available 02/01/2024 Do You Use Sunscreen Routinely? Yes Information not available 02/01/2024 Has Tobacco Cessation Counseling Been Provided? Yes Information not available 02/01/2024 On What Date Was Tobacco Cessation Counseling Provided? 08/22/2024 Information not available 08/22/2024 How Many Years Have You Smoked Tobacco? 10 Information not available 07/25/2024 Sex: Male Functional Status Question Answer Note LastModified by Organizat ion Details LastModified Time Do you use any illicit or recreational drugs? No Information not available 02/01/2024 Do you or have you ever used any other forms of tobacco or nicotine? No Information not available 02/01/2024 What is your level of alcohol consumption? Moderate Information not available 02/01/2024 Are you currently employed? Yes Information not available 02/01/2024 Are you able to care for yourself independently? Yes Information not available 02/01/2024 What is your exercise level? None Information not available 02/01/2024 Mental Status None recorded. Family History Relationship Description Onset Age of this Age Resolved Age Notes LastModified by Organization Details LastModified Time Father Diabetes mellitus [email or web address] Not available 2023 15:12:11 Father Hypertensive disorder gwardma Not available 2023 15:12:20 Father Atrial fibrillation [email or web address] Not available 06/2023 15:12:35 Medical History Condition Response High Blood Pressure Y Anxiety Disorder Y Acid Reflux (GERD) Y High Cholesterol Y Past Encounters Encounter ID Performer Location Encounter Start Date Encounter Closed Date Diagnosis/Indication Diagnosis SNOMED-CT Code Diagnosis ICD10 Code Diagnosis IMO Codes Diagnosis Note [id number] Deandra Duque MD [facility] [place] [address] [place] [address] 02/01/2024 14:50:46 02/01/2024 16:05:53 Morbid obesity 567616537 E66.01 Essential hypertension 22467812 I10 Anxiety 45992316 F41.9 Hyperlipidemia 42930222 E78.5 Gastroesop hageal reflux disease without esophagitis 935116843 K21.9 [id number] Deandra Duque MD [facility] [place] [address] [place] [address] 02/08/2024 10:31:13 02/08/2024 11:29:22 Essential hypertension 43867166 I10 [id number] Deandra Duque MD [facility] [place] [address] [place] [address] 03/11/2024 15:43:37 03/11/2024 17:12:06 Sleep disorder 65113719 G47.9 Screening for malignant neoplasm of colon 934486257 Z12.11 Right inguinal hernia 23 7316368 K40.90 Essential hypertension 33130862 I10 Morbid obesity 994817731 E66.01 [id number] Deandra Duque MD [facility] [place] [address] [place] [address] 07/25/2024 13:50:48 07/25/2024 15:12:32 Essential hypertension 36606477 I10 Anxiety 63938076 F41.9 Morbid obesity 506842929 E66.01 [id number] Deandra Duque MD [facility] [place] [address] [place] [address] 08/22/2024 14:27:00 08/22/2024 14:52:48 Body mass index 40+ - severely obese 531115631 E66.01 87723009 Obese class I 4403517111 50771 E66.811 0563856924 Diabetes m ellitus screening 254165868 Z13.1 378607 Essential hypertension 97494332 I10 834637 Anxiety 73599333 F41.9 06909 Health Concerns Section Related Observation LastModified by Organization Detai ls LastModified Time None Recorded Concern Status LastModified by Organization Details LastModified Time None Recorded Advance Directives Directive N: Payers Insurance Date Sequence Insurance Name Policy Number Policy Pleitez Covered Member ID Pleitez Member ID Guarantor Name 07/30/2024 1 [facility] [id number] Luis Alfredo Patel [id number] Luis Alfredo Patel 08/22/2024 1 *SELF PAY* Gentry Patel Notes Date Note Type Note Provider Name and Address Organization Details Recorded Time 02/01/2024 text/html 1. Hypertension blood pressure high says he is asymptomatic today. 2. Sleep apnea never got to test figured out but he needs to be evaluated has classic symptoms. 3. Obesity he is not really losing weight. 4. Some anxiety has to do with stress. No SI or HI medicines he uses albuterol clonidine 0.1 b.i.d. Lexapro 10 mg daily lisinopril 20 HCTZ 25 daily nifedipine ER 60 mg daily denies surgeries family history of diabetes hypertension and atrial fibrillation works as a labor smokes a little bit but he drinks regularly Deandra Duque MD Attn: Accounting, [place], [address], [facility] 02/01/2024 22:25:21 03/11/2024 text/html blood pressure doing better. No side effects from medications at this time anxiety doing well on generic Lexapro wants to get his hernia looked at in his right inguinal area by surgeon. Obesity would like to get a GLP 1 covered but we have been unsuccessful Deandra Duque MD Attn: Accounting, [address] [place], [address], [facility] 03/16/2024 14:30:32 07/25/2024 text/html blood pressure is up out of medication but he is back in town for awhile. Anxiety is high he did well on the Lexapro would have to have a refill on that as well. Obesity he is willing to try a GLP 1 agent Deandra Duque MD Attn: Accounting, [address] [place], [address], [facility] 07/27/2024 21:08:40 08/22/2024 text/html Blood pressure up he is asymptomatic semaglutide he is going to get through a private pay clinic says he is taking his medicines like he should he needs to get a sleep study done needs to get a colonoscopy done Deandra Duque MD Attn: Accounting[address] [facility], [place], [address], [facility] 09/01/2024 23:31:27
== END 2025-02-25 16:42 | disposition home or self-care (01) ==
PROVIDERS: Emergency Provider Nurse Practitioner Family; PCP Internal Medicine
DX: J18.9 Pneumonia, unspecified organism (principal); Z20.822 Contact with and (suspected) exposure to COVID-19; I10 Essential (primary) hypertension
CPT/HCPCS: 71046; 87426; 87804; 94640; 99213; G0463